=== PATIENT | female | born 2005 | race Caucasian/White ===

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

== ENCOUNTER 2024-01-02 16:36 | Emergency (ER) | payer OTHER ==
[~2024-01-02] VITALS: Ht 154.9 cm; Wt 39.5 kg
[2024-01-02] MEDS ORDERED: LARIN 1.5 MG-31 EAC1 PO (16:51)
[2024-01-02] MEDS ORDERED: BUPROPION HCL200 M1 PO (16:51)
[2024-01-02] MEDS ORDERED: PRAZOSIN HCL1 M2 PO (16:51)
[2024-01-02 17:14] LABS: BASOPHILS ABSOLUTE AUTO 0.04 K/mm3 (0.00-0.23); BASOPHILS PERCENT AUTO 1 % (0-2); EOSINOPHILS ABSOLUTE AUTO 0.03 K/mm3 (0.00-0.68); EOSINOPHILS PERCENT AUTO 0 % (0-6); Hematocrit 39.4 % (33.0-51.0); Hemoglobin 13.5 g/dL (11.5-16.0); IMMATURE GRAN ABSOLUTE AUTO 0.01 K/mm3 (0.00-0.10); IMMATURE GRAN PERCENT AUTO 0 % (0-1); LYMPHOCYTES ABSOLUTE AUTO 2.33 K/mm3 (0.84-5.20); LYMPHOCYTES PERCENT AUTO 35 % (21-46); MONOCYTES ABSOLUTE AUTO 0.52 K/mm3 (0.16-1.47); MONOCYTES PERCENT AUTO 8 % (4-13); Mean Corpuscular HGB 30.1 pg (26.0-34.0); Mean Corpuscular HGB Conc 34.3 g/dL (31.5-36.5); Mean Corpuscular Volume 88 fL (80-100); Mean Platelet Volume 9.2 fL (9.1-12.4); NEUTROPHILS ABSOLUTE AUTO 3.77 K/mm3 (1.96-9.15); NEUTROPHILS PERCENT AUTO 56 % (41-73); Platelet Count 258 K/mm3 (150-400); RDW Coefficient Variation 11.9 % (11.7-14.2); RDW Standard Deviation 38.1 fL (35.1-46.3); Red Blood Cell Count 4.48 M/mm3 (3.80-5.20)
[2024-01-02 17:48] LABS: Ethanol (Alcohol), Blood, Med <3 mg/dL; Salicylate <1.7 mg/dL (2.8-20.0); Thyroxine (T4) 12.1 ug/dL (4.8-13.9)
[2024-01-02 17:52] LABS: Alanine Aminotransfer (ALT/SGP 20 U/L (12-78); Albumin, Blood 4.3 g/dL (3.4-5.0); Albumin/Globulin Ratio 1.2 (0.8-1.8); Alk Phos 60 U/L (50-136); Anion Gap 9 mmol/L (3-11); Aspartate Aminotrans (AST/SGOT 22 U/L (12-37); Bilirubin, Total 0.5 mg/dL (0.1-1.0); Blood Urea Nitrogen 13 mg/dL (8-24); Bun/Creatinine Ratio 12.5 (12.0-20.0); CO2, Blood 27 mmol/L (21-32); Chloride, Blood 106 mmol/L (98-108); Creatinine, Blood 1.04 mg/dL (0.40-1.00); Globulin, Blood 3.5 g/dL (2.2-4.0); Glomerular Filtration Rate 79 (60-); Glucose, Blood 75 mg/dL (70-99); Potassium, Blood 4.2 mmol/L (3.5-5.5); Sodium, Blood 138 mmol/L (136-145); Total Protein, Blood 7.8 g/dL (6.4-8.2)
[2024-01-02 17:53] LABS: Acetaminophen, Random <2.0 ug/mL (10.0-30.0)
[2024-01-02 19:14] LABS: Source, Urine Clean Catch
[2024-01-02 19:21] LABS: Appearance, Urine Clear (Clear); Bilirubin, Urine Neg (Neg); Blood, Urine 5+ (Neg); Glucose Qualitative, Urine Neg (Neg); Ketones, Urine Neg (Neg); Leukocyte Esterase, Urine Neg (Neg); Nitrite, Urine Neg (Neg); Protein, Urine 2+ (Neg); Specific Gravity, Urine 1.005 (1.003-1.022); Urobilinogen, Urine NORM (Normal); pH, Urine 6.5 (5.0-8.0)
[2024-01-02 19:33] LABS: Color, Urine Pale Yellow (P-Yellow)
[2024-01-02 19:34] LABS: White Blood Cells, Urine 0-2 /hpf (0-5)
[2024-01-02 19:35] LABS: Bacteria Mod /hpf; Squamous Epithelial Cells Few /hpf (Few)
[2024-01-02 19:41] LABS: U Amphetamine Screen Not Detected; U Barbituate Screen Not Detected; U Benzodiazapine Screen Not Detected; U Buprenorphine Screen Not Detected; U Cannabinoids Screen DETECTED; U Cocaine Screen Not Detected; U Methadone Screen Not Detected; U Methamphetamine Screen Not Detected; U Opiates Screen Not Detected; U Oxycodone Screen Not Detected; U Phencyclidine Screen Not Detected
[2024-01-02] MEDS ORDERED: Prazosin HCl 1 MG Cap PO SCH (21:00)
[2024-01-02 21:17] VITALS: BP 127/81
[2024-01-03] MEDS ORDERED: LORazepam 2 MG Tab PO ONE (04:55)
[2024-01-03] MEDS ORDERED: LORazepam 2 MG Tab PO PRN ×5 (05:05→05:15)
[2024-01-03] MEDS ORDERED: TraZODone HCl 50 MG Tab PO PRN (05:05)
[2024-01-03] MEDS ORDERED: Ibuprofen 600 MG Tab PO PRN (05:05)
[2024-01-03] MEDS ORDERED: OLANZapine ODT 10 MG Tab MM PRN (05:10)
[2024-01-03] MEDS ORDERED: Haloperidol 5 MG Tab PO PRN ×3 (05:10→05:15)
[2024-01-03] MEDS ORDERED: QUEtiapine Fumarate 25 MG Tab PO PRN (05:10)
[2024-01-03] MEDS ORDERED: OLANZapine ODT 5 MG Tab MM PRN (05:10)
[2024-01-03] MEDS ORDERED: RisperiDONE 1 MG Tab PO PRN (05:10)
[2024-01-03] MEDS ORDERED: DiphenhydrAMINE HCl 50 MG Cap PO PRN ×3 (05:15)
[2024-01-03] MEDS ORDERED: Acetaminophen 325 MG TABLET PO PRN (05:15)
[2024-01-03] MEDS ORDERED: OLANZapine 10 MG Vial IM PRN (05:15)
--- NOTE | 2024-01-03 16:22 | NUR ---
PT WEIGHED AND ACTUAL WEIGHT IS 87 LBS
--- NOTE | 2024-01-03 20:16 | NUR ---
PHYSICAL ASSESSMENT: PATIENT IS A AND O X4, PAIN LEVEL 0/10. LUNG SOUNDS CLEAR THROUGHOUT ALL LOBES. HRR, NO EDEMA. PATIENT IS NOT EATING ENOUGH CALORIES TO MAINTAIN WEIGHT, ADMITS TO EATING DISORDER, NOT SPECIFIED. ABLE TO COMMUNICATE NEEDS IN A LINEAR MANNER, ABLE TO ADVOCATE FOR SELF. BOWEL TONES X4, NO CONSTIPATION ISSUES, PER PATIENT. CONTINUING TO MONITOR FOR ANY NEEDS AND CONCERNS.
[2024-01-03] MEDS ORDERED: QUEtiapine Fumarate 100 MG Tab PO SCH (21:00)
--- NOTE | 2024-01-04 05:02 | NUR ---
I spoke with the patient for about 90 minutes at 1920. The patient was tearful at the onset of our conversation. The patient was adament about "being here was making her worse and she just wanted to be discharged" We spoke of the importance of meeting her basic needs, particularly eating and sleeping and how the lack of these can effect her physical and mental health. she wants to have someone present as she states that her pyschaitrist has "yelled" at her twice. Her nurse was present and advised she would try to have someone present during her visit. The patient had stopped being tearful and became engaged in talking about her future. She would like to see if we can help her get a Psychiatrist when she is released. The patient requests to see if we can help her get a Therapist to have family therapy with her mother and boyfriend when released, we will inform clinical social work therapist of her request.
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
[2024-01-04] MEDS ORDERED: BuPROPion HCl SR 100 MG TabCR PO SCH (09:00)
[2024-01-07] MEDS ORDERED: SERT50 PO (15:04)
[2024-01-07] MEDS ORDERED: QUET100 PO (15:06)
== END 2024-01-03 | disposition other institution (70) ==
LOC: ER 16:36 → EOR 16:37 → BHU 20:33 → ER 20:33 → BHU 01-03 04:34
PROVIDERS: Student in an Organized Health Care Education/Training Program
DX: R45.851 Suicidal ideations (principal); F43.10 Post-traumatic stress disorder, unspecified; F60.3 Borderline personality disorder; Z79.899 Other long term (current) drug therapy
CPT/HCPCS: 80053; 80320; 81001; 81025; 84436; 84443; 85025; 87086; 99285; A9270; G0378; G0480

== ENCOUNTER 2024-01-02 20:33 | Inpatient (IN) | payer OTHER ==
[~2024-01-02 20:33] MED LIST changes: +BUPROPION HCL200 M1 PO; +LARIN 1.5 MG-31 EAC1 PO; +PRAZOSIN HCL1 M2 PO
--- NOTE | 2024-01-03 03:13 | NUR ---
Pt calm, cooperative, medication compliance, pt states, "I have been taking virtual therapy appointment but I think its time that I need to be attending in person appointments going forward. I journal alot, distraction TV, walking in nature, I draw, I play games, I have social supports, Mom, boyfriend, friends, swimming, movies, mall shopping, spending time, talking and being supportive of each other." "
--- NOTE | 2024-01-03 05:31 | NUR ---
Pt extremely anxious, trying to be calm, cooperative, adiment that the doctor come immediately to assess her and find her ready to be discharged. Pt denies SI, HI, A/V Hallucinations. Pt states, "I am getting worse the longer I am here. I need to go home this is not good for me. Let me call the doctor. I need to see him before 0500am so I can get a ride home from my boyfriend. I need to see the doctor." Repetitive, despirate, begging.
--- NOTE | 2024-01-03 05:40 | NUR ---
Pt anxious, demanding to see a doctor before 0500am so she can have a ride home. Pt very high anxiety, guarded curled up in position crying, repeating demands to see doctor as soon as possible before 0500 am.
--- NOTE | 2024-01-03 08:27 | NUR ---
ELIN AT THIS TIME
--- NOTE | 2024-01-03 12:34 | NUR ---
Came onto my shift this morning at 0645, met with PT around 1000am, she was weeping in bed, I asked if she was okay or if there was anything i could do for her, PT stated "No, I dont belong here." I told PT I was sorry for how she was feeling but asked if she wanted to eat her breakfast tray, she said "No because this place is making me sick, I have thrown up five times since being here. I need to leave" I told PT I would throw her breakfast tray away but that she would need to try to eat her lunch tray at 1130am. As I was leaving the PT bedroom, Dr Khan entered, I stayed for a short while, then made my way back down to her room after he left. She was crying, I invited her to group with OT Jerri, she was hestitant but went. She stated "I hate my dr, I was told that the doctor would come in, check my chart, and see that I am not supposed to be here then discharge me. Everybody sees that I am not meant to be here but him, he doesnt listen to me, or care about me, I want to leave." I was able to talk with PT and calm her down, she joined group, then came back into the dinning room for Lunch. She took 1 bite from her mashed potatoes, and refused to eat anymore of her tray. I told PT she needed to eat and refusing food was only going to make her more nauseous, A Lakhwinder poured her three seperate cups filled one with Ensure, one with Chicken Broth, and one with water. PT has slowly sipped on the chicken broth drink and is eating small bites of saltines. RN and export traffic department manager notified.
--- NOTE | 2024-01-03 15:16 | NUR ---
PT NOT EATING MEALS. HAS PARTICIPATED IN A COUPLE OF GROUPS. STATES OVER AND OVER" THAT I CAN'T GET WELL HERE. I CAN'T EAT HERE AND I START TO THROW UP. NO VOMIT SEEN BY STAFF. LUNCH MEAL GIVEN AND ENSURE SHAKE, CHICKEN BROTH AND PB&J SANDWICH. TOOK 1 BITE OF THE SANDWICH AND NOT MUCH OF THE FLUIDS. WHEN EXPLAINED THE PROGRAM GUIDE TO GETTING BETTER AND WHAT IS NEEDED OF HER PARTICIPATION SHE STATES " I CAN'T DO IT HERE I NEED TO GO HOME." SAYS THIS OVER AD OVER AGAIN. HAD LONG INTERVIEW WITH SW TODAY. IS HYPER-FOCUSED ON HER OWN THOUGHTS. WILL CONTINUE TO MONITOR.
--- NOTE | 2024-01-03 17:54 | NUR ---
During dinner time PT stated she was full after only eating her side salad, I asked her to eat some of her dinner meal from the tray as she only had chicken broth and a chocolate ensure today, she started to cry. I let PT know I just wanted her to get some food in her belly, and she stated "I have to eat my dinner or else I will lose points and Dr Khan will force me to stay here like he already is against my will. I hate this place it feels like group home and i dont need to be here, i dont want to be here. I want you to call a different Dr so I can leave TONKATHY. I want you to call another doctor and get him here by 6pm." I stated that she is unable to discharge cecil but if she had any comments questions or concerns that I would bring them to my charge nurse and her nurse to report them. She stated she did not care and that she didnt need to be here and that she hated Dr Khan. She stated Dr Khan yelled at her and wouldnt let her talk in their meeting this morning and that if he actually cared about her, he would let her leave. PT stated Dr Khan cares more about her mothers opinion than her own. I asked if PT would eat he remaining of her meal and she said she would try but that it was making her sick. Reported to PT RN and industrial/organizational psychologist
[2024-01-03 21:02] VITALS: BP 112/92
[2024-01-04 08:22] VITALS: BP 114/83
--- NOTE | 2024-01-04 08:24 | NUR ---
Came onto my shift at 0645, PT said she was sorry for yesterday and that she felt a lot better already this morning as she got some good sleep last night from Meds from Nurse Shayy. She stated she had some really great conversations with SUZANNE Coelho and was feeling hungry. She stated she is interested in groups with EDGARDO Guthrie.
[2024-01-04] MEDS ORDERED: LORazepam 2 MG Tab PO PRN ×5 (11:10→11:20)
[2024-01-04] MEDS ORDERED: Ibuprofen 600 MG Tab PO PRN (11:10)
[2024-01-04] MEDS ORDERED: QUEtiapine Fumarate 25 MG Tab PO PRN (11:15)
[2024-01-04] MEDS ORDERED: OLANZapine ODT 5 MG Tab MM PRN (11:15)
[2024-01-04] MEDS ORDERED: Haloperidol 5 MG Tab PO PRN ×3 (11:15)
[2024-01-04] MEDS ORDERED: OLANZapine ODT 10 MG Tab MM PRN (11:15)
[2024-01-04] MEDS ORDERED: DiphenhydrAMINE HCl 50 MG Cap PO PRN ×3 (11:15→11:20)
[2024-01-04] MEDS ORDERED: RisperiDONE 1 MG Tab PO PRN (11:20)
[2024-01-04] MEDS ORDERED: Acetaminophen 325 MG TABLET PO PRN (11:20)
[2024-01-04] MEDS ORDERED: OLANZapine 10 MG Vial IM PRN (11:20)
--- NOTE | 2024-01-04 13:46 | NUR ---
PT HAS BEEN IN CALM MOOD THROUGHT THE MORNING AND EARLY AFTERNOON. HAS EATEN FAIRLY WELL ON MEALS AND IS INTERRACTING AND PARTICIPATING IN GROUPS AND WITH STAFF.
--- NOTE | 2024-01-04 17:31 | NUR ---
SHIFT SUMMARY PT ACTUALLY HAD A GOOD DAY. DIETIAN IN TO SEE PT [id number] TODAY TO HAVE CONSULTATION.
--- NOTE | 2024-01-04 19:51 | NUR ---
PT IS IN DINING ROOM WITH OTHER PTS. SHE IS JOURNALING. SMILING AND TALKATIVE DURING DISCUSSION. WILL GIVE HS MEDS WHEN TIME.
[2024-01-04 20:09] VITALS: BP 119/85
[2024-01-04] MEDS ORDERED: Prazosin HCl 1 MG Cap PO SCH (21:00)
[2024-01-04] MEDS ORDERED: QUEtiapine Fumarate 100 MG Tab PO SCH (21:00)
--- NOTE | 2024-01-04 23:06 | NUR ---
PT IS IN GOOD SPIRITS. ENJOYING TIME IN THE DINING ROOM JOURNALING AND EATING. SWALLOWED MEDICATIONS WITHOUT DIFFICULTY. A&O X 4. HRR, LS CLEAR T/O ALL LORENZO, DENIES GI OR SX.
--- NOTE | 2024-01-05 04:56 | NUR ---
SHIFT SUMMARY PT WAS IN DINING ROOM AT BEGINNING OF SHIFT WITH ANOTHER PT. PT WAS PARTICIPATING IN ARTS, CRAFTS AND JOURNALING. PT REPORTS NOT HAVING A GREAT APPETITE, BUT IS EATING SNACKS AND SAYS SHE LOVES CHEESE AND WAS EATING SNACKS. A&OX4. HRR. LS CLEAR T/O. BOWEL TONES POSITIVE X 4 QUADS. DENIES SI, HI, AH, VH, OR TH. PRESENTS WITH SMILES AND POSITIVITY, BUT THEN WITHIN A FEW MINUTES WAS TEARFUL AND C/O THAT SHE DOESN'T BELONG HERE AND THAT THE DR SAID SHE MIGHT GO HOME TOMORROW. HOWEVER, HER HOLD IS UNTIL 01/10/24. WILL CONTINUE TO MONITOR AND PROVIDE CARE T/O SHIFT.
--- NOTE | 2024-01-05 10:36 | NUR ---
A/O X4. IN GOOD MOOD AND POSITIVE. EATNG MEALS NOW. AND PARTICIPATES IN GROUPS. HRR BT X4 POSITIVE. LUNG LORENZO CLEAR.
--- NOTE | 2024-01-05 17:19 | NUR ---
ASSUMED PT CARE @1245. PT AA&Ox4. PT PLEASANT AND COOPERATIVE WITH CARE. CONVERSATION AND EYE CONTACT IS APPROPRIATE. PT UP TO MEALS AND PARTICIPATING WITH MILIEU. PT SPENT MOST OF THE AFTERNOON DOING CRAFTS. HER BF BILLY CAME TO VISIT AND SCHEDULED ANOTHER VISIT FOR TOMORROW. PT DENIES SI OR ANY PSYCHOTIC SYMPTOMS. SHE DENIES ANY QUESTIONS OR CONCERNS AT THIS TIME.
[2024-01-05 18:55] VITALS: BP 130/85
[2024-01-05 21:10] VITALS: BP 112/97
--- NOTE | 2024-01-06 04:53 | NUR ---
Patient is A&Ox4. Pleasant to work with and denies SI/HI at the time of assessment. Bed around 2230 and has slept greater than 6.5 hours so far tonight.
[2024-01-06 08:12] VITALS: BP 116/79
--- NOTE | 2024-01-06 08:43 | NUR ---
PT UP IN THE [place]. JUST FINISHED BREAKFAST AND DID WELL IN HER MEAL. APPROX 80% BUT HAD COFFEE, JUICE AND MILK. SHE IS IN A GOOD AND HAPPY MOOD.. STARTING ALREADY TO PARTICIPATE IN HER ACTIVITY OF COLORING FOR NOW. WILL CONTNUE TO COBY.
[2024-01-06] MEDS ORDERED: Sertraline HCl 50 MG Tab PO SCH (09:00)
[2024-01-06] MEDS ORDERED: TROLAMINE SALICYLATE 10% CREAM 141 GM TUBE TOP PRN (13:20)
--- NOTE | 2024-01-06 17:16 | NUR ---
SHIFT SUMMARY PT HAS BEEN HAVING A GOOD DAY. PAIN ON HER BACK AND ASPERCREAM ORDERED FOR PAIN. TOOK ADVIL FOR PAIN. POSSIBLE DISCHARGE IN AM.
[2024-01-06 21:20] VITALS: BP 116/86
--- NOTE | 2024-01-07 05:15 | NUR ---
Patient is alert and oriented times four. pleasant and cooperative with care and supportive of the other women in the milieu. No issues overnight. Went to bed around 1000, and has slept consecutivelly for approximately 7 hours so far. Physical assessment benign.
[2024-01-07 08:51] VITALS: BP 117/92
[2024-01-07] MEDS ORDERED: PRAZ1 PO (15:03)
[2024-01-07] MEDS ORDERED: SERT50 PO ×2 (15:04→15:12)
[2024-01-07] MEDS ORDERED: QUET100 PO ×2 (15:06→15:11)
--- NOTE | 2024-01-07 16:01 | NUR ---
ALVARO contacted VIN at 08:21am and stayed on the phone approxmiately until 08:31am in order to schedule a mental health assessment follow up appointment. ALVARO spoke with Karley. Karley advised that pt appointment would be 01/08/2024 at 1400pm.
--- NOTE | 2024-01-07 16:03 | NUR ---
Pt expressed to team that she wanted SW to have a psycho-education meeting with her biological mother and boyfriend regarding her past and current diagnoses (i.e. MDD, PTSD and BPD). SW contacted Kateryna (i.e. biological mother) at 08:33am in order to schedule psycho-education meeting. SW attempted to contact boyfriend, however, all calls went to voicemail. Caregiver agreed to meet for 1400pm 01/07/2024.
--- NOTE | 2024-01-07 16:08 | NUR ---
At 1400pm SW provided a psycho-education meeting with pt, biological mother Kateryna, boyfriend Jose Roberto, and patient of biological mother. PT provided SW person for patient of mother to attend before biological mother and her patient were able to enter the unit. During meeting, SW provided pt and her support system psycho-education regarding PTSD, MDD, and BPD. SW, pt and family support reviewed strengths and barriers. SW assisted pt and her support system in developing a healthy plan to assist pt in her treatment. Pt improved taking accountability of her actions and managing triggering events effectively without engaging in verbal angry outburst. SW provided pt with mental health resources within her current provider network (i.e. [facility]).
--- NOTE | 2024-01-07 16:15 | NUR ---
SW attempted to contact pt boyfriend at 11:52am in order to review psycho-education meeting of pt, per her request.
== END 2024-01-07 13:20 | disposition home or self-care (01) | DRG 885 ==
LOC: BHU 20:33
PROVIDERS: ADMIT Student in an Organized Health Care Education/Training Program
DX: F32.2 Major depressive disorder, single episode, severe without psychotic features (principal); R45.851 Suicidal ideations; F43.10 Post-traumatic stress disorder, unspecified; F41.9 Anxiety disorder, unspecified; F60.3 Borderline personality disorder; M41.9 Scoliosis, unspecified; Z91.51 Personal history of suicidal behavior; Z79.899 Other long term (current) drug therapy
CPT/HCPCS: 80053; 81001; 81025; 84436; 84443; 85025; 87086; 99285; A9270; G0378; G0480

== ENCOUNTER 2024-07-20 12:43 | Emergency (ER) | payer OTHER ==
[~2024-07-20] VITALS: Ht 154.9 cm; Wt 39.0 kg
[~2024-07-20 12:43] MED LIST changes: +PRAZ1 PO; +QUET100 PO; +SERT50 PO
[2024-07-20 13:01] VITALS: BP 126/92
[2024-07-20] MEDS ORDERED: Ondansetron HCl 2 MG / ML 2ML Vial IV ONE (13:15)
[2024-07-20 13:20] LABS: BASOPHILS ABSOLUTE AUTO 0.07 K/mm3 (0.00-0.23); BASOPHILS PERCENT AUTO 1 % (0-2); EOSINOPHILS PERCENT AUTO 3 % (0-6); Hematocrit 36.6 % (33.0-51.0); Hemoglobin 12.5 g/dL (11.5-16.0); IMMATURE GRAN ABSOLUTE AUTO 0.01 K/mm3 (0.00-0.10); IMMATURE GRAN PERCENT AUTO 0 % (0-1); LYMPHOCYTES ABSOLUTE AUTO 2.47 K/mm3 (0.84-5.20); LYMPHOCYTES PERCENT AUTO 41 % (21-46); MONOCYTES ABSOLUTE AUTO 0.65 K/mm3 (0.16-1.47); MONOCYTES PERCENT AUTO 11 % (4-13); Mean Corpuscular HGB 29.8 pg (26.0-34.0); Mean Corpuscular HGB Conc 34.2 g/dL (31.5-36.5); Mean Corpuscular Volume 87 fL (80-100); Mean Platelet Volume 9.4 fL (9.1-12.4); NEUTROPHILS ABSOLUTE AUTO 2.57 K/mm3 (1.96-9.15); NEUTROPHILS PERCENT AUTO 43 % (41-73); Platelet Count 222 K/mm3 (150-400); RDW Coefficient Variation 11.9 % (11.7-14.2); RDW Standard Deviation 38.6 fL (35.1-46.3); White Blood Cell Count 5.97 K/mm3 (4.00-11.30)
[2024-07-20 13:44] LABS: Albumin/Globulin Ratio 1.2 (0.8-1.8); Bilirubin, Total 0.3 mg/dL (0.1-1.0); Bun/Creatinine Ratio 25.5 (12.0-20.0); Calcium, Blood 9.2 mg/dL (8.5-10.1); Creatinine, Blood 0.67 mg/dL (0.40-1.00); Globulin, Blood 3.3 g/dL (2.2-4.0); Potassium, Blood 3.8 mmol/L (3.5-5.5); Total Protein, Blood 7.3 g/dL (6.4-8.2)
[2024-07-20 14:00] LABS: Influenza A, PCR NEGATIVE (NEGATIVE); Influenza B, PCR NEGATIVE (NEGATIVE); Resp Syncytial Virus, PCR NEGATIVE (NEGATIVE); SARS-Cov-2 (COVID-19) PCR, MMC NEGATIVE (NEGATIVE)
[2024-07-20] MEDS ORDERED: Dexamethasone Sod Phos 10 MG/ML 1ML VIAL PO ONE (16:40)
[2024-07-20] MEDS ORDERED: Albuterol HFA200 ACT/6.7 GM INH INH ONE (16:40)
== END 2024-07-20 17:15 | disposition home or self-care (01) ==
LOC: ER 12:43
PROVIDERS: Physician Assistant
DX: J45.901 Unspecified asthma with (acute) exacerbation (principal); B34.9 Viral infection, unspecified; Z79.899 Other long term (current) drug therapy
CPT/HCPCS: 0241U; 80053; 83690; 84703; 85025; 94640; 94664; 96374; 99285-25; A9270; J1100; J2405

== ENCOUNTER 2025-01-24 11:47 | Emergency (ER) | payer OTHER ==
[~2025-01-24] VITALS: Ht 154.9 cm; Wt 36.7 kg
[2025-01-24 12:30] LABS: BASOPHILS ABSOLUTE AUTO 0.04 K/mm3 (0.00-0.23); BASOPHILS PERCENT AUTO 1 % (0-2); EOSINOPHILS ABSOLUTE AUTO 0.07 K/mm3 (0.00-0.68); EOSINOPHILS PERCENT AUTO 1 % (0-6); Hematocrit 38.9 % (33.0-51.0); Hemoglobin 13.0 g/dL (11.5-16.0); IMMATURE GRAN ABSOLUTE AUTO 0.01 K/mm3 (0.00-0.10); IMMATURE GRAN PERCENT AUTO 0 % (0-1); LYMPHOCYTES ABSOLUTE AUTO 2.63 K/mm3 (0.84-5.20); LYMPHOCYTES PERCENT AUTO 40 % (21-46); MONOCYTES ABSOLUTE AUTO 0.52 K/mm3 (0.16-1.47); MONOCYTES PERCENT AUTO 8 % (4-13); Mean Corpuscular HGB Conc 33.4 g/dL (31.5-36.5); Mean Corpuscular Volume 88 fL (80-100); NEUTROPHILS ABSOLUTE AUTO 3.31 K/mm3 (1.96-9.15); NEUTROPHILS PERCENT AUTO 50 % (41-73); NRBC ABSOLUTE 0.00 K/mm3 (0.00-0.02); NRBC Auto 0.0 /100 WBC (0.0-0.2); Platelet Count 214 K/mm3 (150-400); RDW Coefficient Variation 11.9 % (11.7-14.2); RDW Standard Deviation 38.2 fL (35.1-46.3)
[2025-01-24 12:50] LABS: Alanine Aminotransfer (ALT/SGP 19.0 U/L (12-78); Albumin, Blood 4.2 g/dL (3.4-5.0); Albumin/Globulin Ratio 1.4 (0.8-1.8); Anion Gap 7.0 mmol/L (3-11); Aspartate Aminotrans (AST/SGOT 15.0 U/L (12-37); Bilirubin, Total 0.3 mg/dL (0.1-1.0); Blood Urea Nitrogen 17.0 mg/dL (8-24); CO2, Blood 29.0 mmol/L (21-32); Calcium, Blood 9.1 mg/dL (8.5-10.1); Chloride, Blood 106.0 mmol/L (98-108); Creatinine, Blood 0.76 mg/dL (0.40-1.00); Globulin, Blood 3.0 g/dL (2.2-4.0); Glucose, Blood 94.0 mg/dL (70-99); Potassium, Blood 3.8 mmol/L (3.5-5.5); Sodium, Blood 138.0 mmol/L (136-145); Total Protein, Blood 7.2 g/dL (6.4-8.2)
[2025-01-24] MEDS ORDERED: NS 1,000 ML IV SCH (16:25)
[2025-01-24] MEDS ORDERED: Ondansetron HCl 2 MG / ML 2ML Vial IV ONE (16:25)
[2025-01-24] MEDS ORDERED: DiphenhydrAMINE HCl 50 MG/ML 1ML Vial IV ONE (17:10)
[2025-01-24 19:05] VITALS: BP 110/80
[2025-01-24] MEDS ORDERED: RX Prepack 2 Tabs Ondansetron ODT 4MG UD ONE (19:05)
[2025-01-25] MEDS ORDERED: ONDA4ODT MM (05:30)
== END 2025-01-24 19:06 | disposition home or self-care (01) ==
LOC: ER 11:47
PROVIDERS: Emergency Medicine
DX: S06.0XAD Concussion with loss of consciousness status unknown, subsequent encounter (principal); W18.30XD Fall on same level, unspecified, subsequent encounter; F43.10 Post-traumatic stress disorder, unspecified; Z79.899 Other long term (current) drug therapy; Z88.8 Allergy status to other drugs, medicaments and biological substances
CPT/HCPCS: 80053; 85025; 96361; 96374; 96375; 99284-25; A9270; J1200; J2405; J7030